=== PATIENT | female | born 1955 | race Asian ===

== ENCOUNTER 2016-09-03 18:03 | Emergency (ER) | payer OTHER ==
[2016-09-03 20:26] LABS: Hematocrit 39 % (35-47); Hemoglobin 13.2 g/dl (12.0-16.0); Mean Corpuscular HGB Conc 34 g/dl (31-36); Mean Corpuscular Hemoglobin 31 pg (27-31); Mean Corpuscular Volume 90 fL (80-97); Mean Platelet Volume 6 um3 (7.4-10.4); Red Blood Count 4.34 10^6/ul (4.0-5.4); Red Cell Distribution Width 13 % (10.5-15); White Blood Count 7.5 10^3/ul (3.5-10.8)
[2016-09-03 20:39] LABS: Albumin 3.7 g/dL (3.2-5.2); BUN/Creatinine Ratio 13.6 (8-20); Calcium 8.9 mg/dL (8.6-10.3); EGFR African American 117.5 (>60); EGFR Non-African American 91.4 (>60); Globulin 3.6 g/dL (2-4); Potassium 3.6 mmol/L (3.5-5.0); Total Bilirubin 0.8 mg/dL (0.2-1.0); Total Protein 7.3 g/dL (6.4-8.9)
[2016-09-03 20:40] LABS: Troponin I 0.01 ng/mL (<0.04)
[2016-09-03] MEDS ORDERED: DOXYcycline CAP(*) 100 MG PO ONE (20:50)
[2016-09-03] MEDS ORDERED: Artificial Tear OPHTH.OINT* 3.5 GM RIGHT EYE PRN (20:52)
--- NOTE | 2016-09-03 21:07 | ED ---
Filomena Chapman Alok, scribed for Dayanna Gonzales MD on 09/03/16 at 2000 . Neurological HPI - HPI Summary HPI Summary: 60F presents to the ED with a PÉREZ for the last 10 days as well as a right sided facial drop as of this morning accompanied by right eye drainage. Pt states her PÉREZ begins at the right side of the top of her head and radiates behind her right eye down to her right shoulder, and has improved somewhat since yesterday. Pt states she has been taking tylenol/ibuprofen to manage pain. Pt also notes diplopia worse than baseline since the start of her PÉREZ. Pt denies dysphagia. Pt takes Lipitor BID. Pt notes tick bite 2 weeks ago. - History of Current Complaint Chief Complaint: EDNeurologicalDeficit Stated Complaint: RT SIDE NUMBNESS ON FACE/HEADACHE Time Seen by Provider: 09/03/16 19:20 Hx Obtained From: Patient Onset/Duration: Started days ago, Still Present Timing: Constant Onset Severity: Moderate Current Severity: Moderate Neurological Deficit Location: Facial Headache Location: Parietal (Right) Pain Intensity: 0 Pain Scale Used: 0-10 Numeric Character: Visual Changes, Other: - facial drop Aggravating: Nothing Alleviating: OTC Meds Associated Signs and Symptoms: Positive: Visual Changes, Headache - Allergy/Home Medications Allergies/Adverse Reactions: Allergies Allergy/AdvReac Type Severity Reaction Status Date / Time Tramadol Allergy Rash Verified 09/03/16 18:57 PMH/Surg Hx/FS Hx/Imm Hx GI History: Denies: Hx Cirrhosis Musculoskeletal History: Denies: Hx Rheumatoid Arthritis, Hx Osteoporosis - Cancer History Hx Chemotherapy: No Hx Radiation Therapy: No Infectious Disease History: No Infectious Disease History: Reports: Hx Hepatitis - at age 14-15 Denies: Traveled Outside the [place] in Last 30 Days - Family History Known Family History: Positive: Other - No - breast CA - Social History Occupation: Retired Lives: With Family Alcohol Use: Daily Alcohol Amount: 2 glasses of wine daily Substance Use Type: Reports: None Smoking Status (MU): Never Smoked Tobacco Review of Systems Negative: Fever Positive: Diplopia, Drainage Negative: Other - dysphagia Neurological: Other - right side facial droop Positive: Headache All Other Systems Reviewed And Are Negative: Yes Physical Exam Triage Information Reviewed: Yes Vital Signs On Initial Exam: Initial Vitals Temp Pulse Resp BP Pulse Ox 99.7 F 72 18 127/87 99 09/03/16 18:27 09/03/16 18:27 09/03/16 18:27 09/03/16 18:27 09/03/16 18:27 Vital Signs Reviewed: Yes Appearance: Positive: Well-Appearing, No Pain Distress Skin: Positive: Warm, Skin Color Reflects Adequate Perfusion, Dry Eyes: Positive: EOMI, KURTIS ENT: Positive: Pharynx normal, TMs normal Neck: Positive: Supple, Nontender Respiratory/Lung Sounds: Positive: Clear to Auscultation, Breath Sounds Present. Negative: Rales, Rhonchi, Wheezes Cardiovascular: Positive: RRR, Other - no gallop. Negative: Murmur, Rub Abdomen Description: Positive: Nontender, Soft, Other: - no rebound. Negative: Distended, Guarding Bowel Sounds: Positive: Present Musculoskeletal: Positive: Strength/ROM Intact. Negative: Edema Left, Edema Right Neurological: Positive: Alert, Oriented to Person Place, Time, Other - Right side facial droop. Patient is unable to raise right eye brown or wiggle right side forehead. Psychiatric: Positive: Affect/Mood Appropriate - [place] Coma Scale Coma Scale Total: 15 Diagnostics - Vital Signs Vital Signs Temp Pulse Resp BP Pulse Ox 09/03/16 19:30 76 12 127/80 100 09/03/16 19:00 71 11 150/83 100 09/03/16 18:52 99.7 F 74 18 127/87 100 09/03/16 18:51 136/79 09/03/16 18:27 99.7 F 72 18 127/87 99 - Laboratory Lab Results: Lab Results 09/03/16 09/03/16 09/03/16 Range/Units 20:00 20:00 20:00 WBC 7.5 (3.5-10.8) 10^3/ul RBC 4.34 (4.0-5.4) 10^6/ul Hgb 13.2 (12.0-16.0) g/dl Hct 39 (35-47) % MCV 90 (80-97) fL MCH 31 (27-31) pg MCHC 34 (31-36) g/dl RDW 13 (10.5-15) % Plt Count 303 (150-450) 10^3/ul MPV 6 L (7.4-10.4) um3 Neut % (Auto) 83.3 H (38-83) % Lymph % (Auto) 8.9 L (25-47) % [place] % (Auto) 5.0 (1-9) % Eos % (Auto) 2.4 (0-6) % Baso % (Auto) 0.4 (0-2) % Absolute Neuts (auto) 6.3 (1.5-7.7) 10^3/ul Absolute Lymphs (auto) 0.7 L (1.0-4.8) 10^3/ul Absolute Monos (auto) 0.4 (0-0.8) 10^3/ul Absolute Eos (auto) 0.2 (0-0.6) 10^3/ul Absolute Basos (auto) 0 (0-0.2) 10^3/ul Absolute Nucleated RBC 0.01 10^3/ul Nucleated RBC % 0.1 INR (Anticoag Therapy) 0.94 (0.89-1.11) Sodium 137 (133-145) mmol/L Potassium 3.6 (3.5-5.0) mmol/L Chloride 103 (101-111) mmol/L Carbon Dioxide 26 (22-32) mmol/L Anion Gap 8 (2-11) mmol/L BUN 9 (6-24) mg/dL Creatinine 0.66 (0.51-0.95) mg/dL Est GFR ( Amer) 117.5 (>60) Est GFR (Non-Af Amer) 91.4 (>60) BUN/Creatinine Ratio 13.6 (8-20) Glucose 92 (70-100) mg/dL Calcium 8.9 (8.6-10.3) mg/dL Total Bilirubin 0.80 (0.2-1.0) mg/dL AST 154 H (13-39) U/L ALT 157 H (7-52) U/L Alkaline Phosphatase 265 H (34-104) U/L Troponin I 0.01 (<0.04) ng/mL Total Protein 7.3 (6.4-8.9) g/dL Albumin 3.7 (3.2-5.2) g/dL Globulin 3.6 (2-4) g/dL Albumin/Globulin Ratio 1.0 (1-3) Result Diagrams: 09/03/16 20:00 09/03/16 20:00 Lab Statement: Any lab studies that have been ordered have been reviewed, and results considered in the medical decision making process. Course/Dx - Course Course Of Treatment: 60 yo with headache and neck pain for one week followed by bells palsy case discussed with Dr. Perez who agreed with zion for treatment - Diagnoses Provider Diagnoses: Lyme disease, Roa's palsy - Physician Notifications Discussed Care Of Patient With: Arlyn Perez - Recomended Doxycycline Time Discussed With Above Provider: 20:00 Discharge - Discharge Plan Condition: Stable Disposition: HOME Prescriptions: DOXYcycline CAP(*) [DOXYcycline 100MG CAP(*)] 100 mg PO BID #28 cap The documentation as recorded by the Filomena ortiz Alok accurately reflects the service I personally performed and the decisions made by , Dayanna Gonzales MD.
[2016-09-03 21:47] VITALS: BP 137/79
[2016-09-06 23:58] LABS: Lyme Disease IgG Ab WB Negative (Negative)
== END 2016-09-03 21:48 | disposition home or self-care (01) ==
LOC: ED 18:03
DX: A69.20 Lyme disease, unspecified (principal); G51.0 Bell's palsy
CPT/HCPCS: 36415; 80053; 83605; 84484; 85025; 85610; 86617; 86618; 99285; A9270-GY

== ENCOUNTER 2018-07-08 14:15 | Emergency (ER) | payer OTHER ==
[2018-07-08 14:34] VITALS: BP 101/63
--- NOTE | 2018-07-08 14:42 | UC ---
Skin Complaint HPI - HPI Summary HPI Summary: 62 yo female presents with tick bite. She tells me that yesterday she was outside often and last evening noticed a tick to her right hip. Her tried to remove it, but left a small piece embedded within the skin. She is here today concerned that the remaining piece will transmit lyme disease to her. Denies pain or any other symptoms. - History of Current Complaint Chief Complaint: UCSkin Time Seen by Provider: 07/08/18 14:42 Stated Complaint: TICK BITE Hx Obtained From: Patient Onset/Duration: Sudden Onset Current Severity: None Pain Intensity: 0 Pain Scale Used: 0-10 Numeric - Allergy/Home Medications Allergies/Adverse Reactions: Allergies Allergy/AdvReac Type Severity Reaction Status Date / Time tramadol Allergy Rash Verified 07/08/18 14:34 PMH/Surg Hx/FS Hx/Imm Hx Endocrine History: Dyslipidemia - Surgical History Surgical History: None - Family History Known Family History: Positive: Other - No - breast CA - Social History Lives: With Family Alcohol Use: Daily Alcohol Amount: 2 glasses of wine daily Substance Use Type: None Smoking Status (MU): Never Smoked Tobacco Review of Systems All Other Systems Reviewed And Are Negative: Yes Constitutional: Positive: Negative Skin: Positive: Other - Tick bite Respiratory: Positive: Negative Cardiovascular: Positive: Negative Neurological: Positive: Negative Psychological: Positive: Negative Physical Exam - Summary Physical Exam Summary: GENERAL: NAD. WDWN. No pain distress. SKIN: RIGHT HIP: there is a 7mm diameter of mild erythema and edema with central 1mm area of superficial skin loss and central black spec. No streaking, bleeding, or drainage. CHEST: No accessory muscle use. Breathing comfortably and in no distress. CV: Pulses intact. Cap refill <2seconds NEURO: Alert. PSYCH: Age appropriate behavior. Triage Information Reviewed: Yes Vital Signs: Initial Vital Signs Temp 99.3 F 07/08/18 14:29 Pulse 76 07/08/18 14:29 Resp 18 07/08/18 14:29 BP 101/63 07/08/18 14:29 Pulse Ox 100 07/08/18 14:29 Vital Signs Reviewed: Yes Course/Dx - Course Course Of Treatment: Tick bite to right hip. Reassured pt that the pinpoint tick spec within her skin will likely be pushed out in a few days without intervention. - Diagnoses Provider Diagnosis: Tick bite Discharge - Sign-Out/Discharge Documenting (check all that apply): Patient Departure All imaging exams completed and their final reports reviewed: No Studies - Discharge Plan Condition: Stable Disposition: HOME Patient Education Materials: Lyme Disease (ED), Tick Bite (ED) Referrals: Effie Hearn MD [Primary Care Provider] - Additional Instructions: If you develop a fever, shortness of breath, chest pain, new or worsening symptoms - please call your PCP or go to the ED immediately. - Billing Disposition and Condition Condition: STABLE Disposition: Home
== END 2018-07-08 14:59 | disposition home or self-care (01) ==
LOC: UCEAST 14:15
DX: S70.261A Insect bite (nonvenomous), right hip, initial encounter (principal); W57.XXXA Bitten or stung by nonvenomous insect and other nonvenomous arthropods, initial encounter; Y92.9 Unspecified place or not applicable; E78.5 Hyperlipidemia, unspecified; Z88.5 Allergy status to narcotic agent
CPT/HCPCS: 99211; G0463